=== PATIENT | female | born 1950 | race African-American/Black ===

== ENCOUNTER → 2018-01-28 | Outpatient (CLI) | payer MEDICARE, BC | END | disposition home or self-care (01) | LOC: LABPAT 10:53 | PROVIDERS: ATTEND Orthopaedic Surgery | DX: Z01.812 Encounter for preprocedural laboratory examination (principal) | CPT/HCPCS: 87070 ==

== ENCOUNTER → 2018-02-10 | Outpatient (CLI) | payer MEDICARE, BC ==
[2018-02-10 14:12] LABS: HCT 34.7 % (34.0-46.0); HGB 10.9 gm/dL (11.4-16.0); Hypochromasia Slight; MCH 24.9 pg (25.0-35.0); MCHC 31.3 g/dL (31.0-37.0); MCV 79.4 fL (80.0-100.0); Mean Platelet Volume 6.5; Platelet Count 364 k/uL (150-450); RBC 4.38 m/uL (3.80-5.40); RDW 15.2 % (11.5-15.5); WBC 7.2 k/uL (3.8-10.6)
[2018-02-10 14:14] LABS: Partial Thromboplastin Time 22.3 sec (22.0-30.0); Prothrombin Time 10.2 sec (9.0-12.0)
[2018-02-10 14:23] LABS: ALT 28 U/L (9-52); AST 30 U/L (14-36); Albumin 4.2 g/dL (3.5-5.0); Alkaline Phosphatase 81 U/L (38-126); Anion Gap 14 mmol/L; Blood Urea Nitrogen 15 mg/dL (7-17); Calcium 9.7 mg/dL (8.4-10.2); Carbon Dioxide 26 mmol/L (22-30); Chloride 102 mmol/L (98-107); Glucose 85 mg/dL (74-99); Sodium 142 mmol/L (137-145); Total Bilirubin 0.5 mg/dL (0.2-1.3)
[2018-02-10 14:55] LABS: Appearance,Urine Clear (Clear); Bilirubin,Urine Negative (Negative); Blood,Urine Negative (Negative); Color,Urine Light Yellow; Glucose,Urine (UA) Negative (Negative); Ketones,Urine Trace (Negative); Leukocyte Esterase,Urine Trace (Negative); Mucus,Urine Rare /hpf; Nitrite,Urine Negative (Negative); Protein,Urine Negative (Negative); RBC,Urine <1 /hpf (0-5); Specific Gravity,Urine 1.009 (1.001-1.035); Squamous Epithelial Cell,Urine 1 /hpf (0-4); Urobilinogen,Urine <2.0 mg/dL (<2.0); WBC,Urine 2 /hpf (0-5)
== END | disposition home or self-care (01) ==
LOC: LABPAT 13:07
PROVIDERS: ATTEND Orthopaedic Surgery
DX: Z01.812 Encounter for preprocedural laboratory examination (principal); Z01.818 Encounter for other preprocedural examination
CPT/HCPCS: 36415; 80053; 81001; 85027; 85610; 85730; 86850; 86900; 86901; 93005

== ENCOUNTER 2018-02-16 07:33 | Inpatient (IN) | payer MEDICARE, BC ==
[2018-02-03 13:27] VITALS: BMI 35.5
[~2018-02-16 07:33] MED LIST: ACETAMINOPHEN TAB 500 MG TAB PO ONE; HYDROmorphone 0.5 MG/0.5 ML SYRINGE IVP PRN; MELOXICAM 7.5 MG TAB PO ONE; MORPHINE SULFATE 4 MG/ML SYRINGE IV PRN; ONDANSETRON 4 MG/2 ML VIAL IVP PRN; ROPIVACAINE 246.25 MG, EPINEPHrine 0.5 MG, KETOROLAC 30 MG, cloNIDine HCL/PF 80 MCG, WA... MISCELLANE ONE; TRANEXAMIC ACID 1,000 MG in SODIUM CHLORIDE 0.9% 50 ML IVPB ONE; ceFAZolin IN SWFI 2 GM/20 ML SYRINGE IVP ONE
[2018-02-16] MEDS: LACTATED RINGERS 1,000 ML IV SCH ×2 (08:08→22:44)
[2018-02-16] MEDS ORDERED: LIDOCAINE 1% 20 ML VIAL (10MG/ML) FOR IV START INTRADERMA ONE (08:08)
[2018-02-16] MEDS ORDERED: ONDANSETRON 4 MG/2 ML VIAL ONE (08:10)
[2018-02-16] MEDS ORDERED: MAGNESIUM HYDROXIDE 2,400 MG/10 ML CUP PO PRN (08:59)
[2018-02-16] MEDS ORDERED: DIAZEPAM 5 MG TAB PO PRN ×2 (08:59)
[2018-02-16] MEDS ORDERED: HYDROmorphone 0.5 MG/0.5 ML SYRINGE IVP PRN ×3 (08:59)
[2018-02-16] MEDS ORDERED: hydrOXYzine PAMOATE 25 MG CAP PO PRN (08:59)
[2018-02-16] MEDS ORDERED: ONDANSETRON 4 MG/2 ML VIAL IVP PRN (08:59)
[2018-02-16] MEDS ORDERED: HYDROcodone/APAP 5-325MG 1 EACH TAB PO PRN (08:59)
[2018-02-16] MEDS ORDERED: NALOXONE 0.4 MG/ML 1 ML VIAL IV PRN (08:59)
[2018-02-16] MEDS ORDERED: PROPOFOL 10 MG/ML 20 ML VIAL IV ONE (09:38)
[2018-02-16] MEDS ORDERED: TRANEXAMIC ACID 1,000 MG/10 ML VIAL ONE (09:38)
[2018-02-16] MEDS ORDERED: LACTATED RINGERS 1,000 ML BAG IV ONE (09:38)
[2018-02-16] MEDS ORDERED: HEPARIN SODIUM,PORCINE 10,000 UNIT/ML 1 ML VIAL ONE (09:38)
[2018-02-16] MEDS ORDERED: LIDOCAINE 1% INJ 10MG/ML (20 ML MDV) ONE (09:38)
[2018-02-16] MEDS ORDERED: MIDAZOLAM 2 MG/2 ML VIAL ONE (09:38)
[2018-02-16] MEDS ORDERED: SODIUM CHLORIDE 0.9% 100 ML BAG ONE (09:38)
[2018-02-16] MEDS ORDERED: PHENYLEPHRINE-0.9% NACL SYG 1 MG/10 ML SYRINGE ONE (09:38)
[2018-02-16] MEDS ORDERED: fentaNYL (PF) 50 MCG/ML 2 ML AMP ONE (09:38)
[2018-02-16] MEDS ORDERED: ceFAZolin 3,000 MG in SODIUM CHLORIDE 0.9% IRRIGATIO 3,000 ML IRRIGATION ONE (10:14)
[2018-02-16] MEDS ORDERED: LACTATED RINGERS 1,000 ML IV ONE (10:33)
--- NOTE | 2018-02-16 11:09 | P.OP ---
Date of Procedure: 02/16/18 Preoperative Diagnosis: Severe osteoarthritis right hip Postoperative Diagnosis: Severe osteoarthritis right hip Procedure(s) Performed: Right total hip arthroplasty with a direct anterior approach Implants: Sultana and nephew Polarstem size 2 standard Sultana [employer] Nephew R3, 3 hole acetabular shell, 50 mm Sultana [employer] Nephew reflection 6.5 mm cancellus screw, 20 mm 2 Sultana [employer] Nephew R3, XLPE 20 acetabular liner Sultana [employer] Nephew Oxinium femoral head 32 m, +4 All components were press-fit. The articulation is Oxinium on polyethylene. Anesthesia: spinal Surgeon: Humberto Lobato Cold Rolling Coordinator #1: Yumiko Aldrich Estimated Blood Loss (ml): 300 (60 mL returned with Cell Saver) Pathology: other (Femoral head) Condition: stable Disposition: PACU Indications for Procedure: After failure of conservative treatment we discussed the surgical and nonsurgical treatment options at length. Patient wishes to proceed with a total hip arthroplasty with a direct anterior approach. Complications specific to this procedure were discussed at length, including but not limited to infection, leg length discrepancy, dislocation, and nerve injury. Patient is aware of all these complications and informed consent was obtained Operative Findings: The operative findings are consistent with severe osteoarthritis of the right hip Description of Procedure: Patient was seen and evaluated in the preoperative area, consent was reviewed, and the surgical site was marked with a skin marker. Patient was then brought to the operating room and given prophylactic antibiotics intravenously. 1 g of Tranexamic acid was also given. A spinal anesthetic was administered by the anesthesia department. The patient was then placed on the Marshall table with the bony prominences well-padded. The hip area was then prepped and draped in usual sterile fashion. A universal timeout was then performed, which confirmed the patient's name, surgical site, ALLERGIES, and procedure being performed. Next the incision site was located at 1 cm distal and 1 cm lateral to the anterior superior iliac spine. The skin and subcutaneous tissues were sharply incised. Incision was carefully dissected down to the fascia overlying the tensor fascia ward muscle. This fascia was then incised in line with the incision. Next, using blunt finger dissection, the tensor fascia ward muscle was dissected off its investing fascia. The muscle was then carefully retracted laterally with a cobra retractor over the lateral neck of the femur. Next, the circumflex vessels were identified and cauterized using the AquaMantis device. The anterior hip capsule was then exposed. The capsule was then opened and an inverted T fashion. Cobra retractors were then placed intracapsularly. The proximal femur was then visualized. The femoral neck was then osteotomized appropriate level above the lesser trochanter. Small amount of traction was placed with the Marshall table. A small wedge of bone was then removed from the remaining femoral head. Next, using a corkscrew femoral head was easily removed from the acetabulum. On gross visual inspection, the femoral head had complete loss of articular cartilage in multiple periarticular osteophytes. Attention was then turned to the acetabulum. the acetabulum was exposed and any remaining labrum was excised. Sequential reaming of the acetabulum was performed using fluoroscopic guidance. When the appropriate size was reached, a trial was then placed. The position and fit of the trial was checked with fluoroscopy. The trial was then removed. Then, using fluoroscopic guidance, the final implant was impacted at 20 of anteversion and 40 of abduction, and fully seated in the acetabulum. 2 screws were then placed in the acetabulum. Again fluoroscopy was used to check position of the screws. Next, the liner was then impacted, with a 20 elevated liner located in the anterior superior quadrant. Component locking was confirmed. Attention was then directed to the femur. With the aid of the Marshall table, the femur was externally rotated to approximately 130, extended, and abducted under the opposite leg. A side hook was then placed under the proximal femur, and the side hook elevator was used to elevate the proximal femur. Retractors were then placed. A capsular release was performed, as well as a release of the conjoined tendon, which afforded excellent visualization of the proximal femur. Next, a box osteotome was used to lateralize the proximal femur. A hand umbrella tipper was then used to locate the femoral canal. Sequential broaching was then performed with appropriate size which afforded excellent fixation in the proximal femur. A trial was then placed with appropriate head and neck, and the hip was gently reduced with the aid of the Marshall table. Fluoroscopy was then used to check position of the components, as well as to ensure equal leg lengths. The hip was then gently dislocated and the trials were then removed. Final implants were then impacted and the hip was again reduced. Final fluoroscopic x-rays confirmed that the components were in anatomic position, as well as equal leg lengths. The hip was also taken through range of motion, and found to be stable. The hip was then copiously irrigated with antibiotic solution with pulsatile lavage. The hip was then irrigated with Irrisept solution. The soft tissues were then injected with a ropivacaine solution, which consisted of 246.25 mg of ropivacaine, 0.5 mg of epinephrine, 30 mg of Toradol, 80 g of clonidine, and 48.45 mL of sterile water, for a total of 100 mL of fluid injected. A second dose of 1 g of Tranexamic acid was also given. the fascia was then closed with 2-0 strata fix suture. The subcutaneous tissue was closed with 3-0 Vicryl. The subcuticular tissue was closed with 3-0 strata fix suture. The skin was then closed with Dermabond glue and a sterile silver dressing. The patient was then transferred to the recovery room in stable condition. The phlebotomist medical lab assistant KAREN Brewer was required due to the complexity of surgery, and the need for skilled surgical elastic knitter hand frame for positioning, draping, exposure, retraction, and closure of the wound.
--- NOTE | 2018-02-16 11:47 | XR ---
Limited right hip HISTORY: Status post right hip arthroplasty Single frontal view of the right hip Patient is status post right hip arthroplasty. Postop change noted in the lumbosacral spine. The righ t hip shows normal alignment. Lucency present in the soft tissues. IMPRESSION: Orthopedic follow-up
--- NOTE | 2018-02-16 11:49 | XR ---
Limited right hip HISTORY: Anterior hip replacement 2 intraoperative views of the right hip document the procedure.
--- NOTE | 2018-02-16 11:50 | FL ---
Fluoroscopy HISTORY: Hip replacement 34 seconds fluoroscopy time supplied to the referring clinician. 2 intraoperative C-arm images docum ent the procedure. See dictated report from orthopedic surgery.
[2018-02-16] MEDS: SODIUM CHLORIDE 0.9% 1,000 ML IV SCH (12:00)
--- NOTE | 2018-02-16 13:27 | P.CONS ---
History of Present Illness - Reason for Consult Consult date: 02/16/18 Medical management - Chief Complaint Hip pain - History of Present Illness 67-year-old female who is here for right total hip arthroplasty. She has been having worsening pain in the right lower back and right hip for the last several months. She cannot sleep on the right side. After failing conservative treatment she underwent right total hip arthroplasty today. Currently she is doing well, has minimal right hip pain. No chest pain or shortness of breath. No fevers or chills. No recent illness. No nausea or vomiting, abdominal pain or diarrhea. Review of Systems 12 point review of system performed, negative except for HPI Past Medical History Past Medical History: Hypertension, Osteoarthritis (OA), Sleep Apnea/CPAP/BIPAP Additional Past Medical History / Comment(s): Hx sleep apnea, resolved 8 yrs ago. History of Any Multi-Drug Resistant Organisms: None Reported Past Surgical History: Back Surgery, Bariatric Surgery, Cholecystectomy, Hysterectomy, Joint Replacement Additional Past Surgical History / Comment(s): Left hip replacement, lumbar spinal fusion, left bunionectomy. Past Anesthesia/Blood Transfusion Reactions: No Reported Reaction Past Psychological History: No Psychological Hx Reported Smoking Status: Never smoker Past Alcohol Use History: Occasional Past Drug Use History: None Reported - Past Family History Father Family Medical History: Deep Vein Thrombosis (DVT) Daughter(s) Family Medical History: Cancer Additional Family Medical History / Comment(s): Breast cancer Medications and Allergies Home Medications Medication Instructions Recorded Confirmed Type Lisinopril [Zestril] 20 mg PO QAM 02/03/18 02/16/18 History Multivitamins, Thera [Multivitamin 2 tab PO DAILY 02/03/18 02/16/18 History (formulary)] Allergies Allergy/AdvReac Type Severity Reaction Status Date / Time No Known Allergies Allergy Verified 02/16/18 09:09 Physical Exam Vitals: Vital Signs Temp Pulse Resp BP Pulse Ox 02/16/18 11:50 83 14 101/52 100 02/16/18 11:35 77 14 103/57 100 02/16/18 11:26 96.5 F L 94 14 98/54 100 02/16/18 07:50 98.0 F 86 16 161/88 100 Intake and Output 02/15/18 02/16/18 02/16/18 22:59 06:59 14:59 Intake Total 1701 Output Total 300 Balance 1401 Intake: IV 1701 Output: Estimated Blood Loss 300 Other: Weight 93.894 kg Constitutional: No acute distress, conversant, pleasant Eyes:Anicteric sclerae, moist conjunctiva, no lid-lag, PERRLA, ENMT: Oropharynx clear, no erythema, exudates Neck: Supple, FROM, no masses, or JVD, No carotid bruits, No thyromegaly Lungs: Clear to auscultation, Clear to percussion, Normal respiratory effort, no accessory muscle use Cardiovascular: Heart regular in rate and rhythm, No murmurs, gallops, or rubs, No peripheral edema Abdominal: Soft, Nontender, no guarding, rebound or rigidity, Normoactive bowel sounds, No hepatomegaly, No splenomegaly, No palpable mass Skin: Normal temperature, tone, texture, turgor, no induration, No subcutaneous nodules, No rash, lesions, No ulcers Extremities: Right hip surgical dressings, no digital cyanosis, No clubbing, Pedal pulses intact and symmetrical, Radial pulses intact and symmetrical, No calf tenderness Psychiatric: Alert and oriented to person, place and time, appropriate affect, intact judgement Neuro: Muscles Strength 5/5 in all 4 extremities, Sensation to light touch grossly present throughout, Cranial nerves II-XII grossly intact, no focal sensory deficits Assessment and Plan Plan: #1 Severe right hip osteoarthritis status post hip replacement: Management per orthopedic surgery Pain control with as needed pain medications. Physical therapy #2 Essential hypertension Currently stable Continue lisinopril #3 DVT prophylaxis Per surgery, aspirin
[2018-02-16] MEDS: HYDROcodone/APAP 5-325MG 1 EACH TAB PO PRN ×2 (13:52→19:45)
[2018-02-16] MEDS: ceFAZolin IN SWFI 2 GM/20 ML SYRINGE IVP SCH (15:27)
[2018-02-16] MEDS: ASPIRIN 325 MG TAB PO SCH (19:44)
[2018-02-16] MEDS ORDERED: SODIUM CHLORIDE 0.9% 1,000 ML IV ONE (20:06)
[2018-02-16] MEDS ORDERED: SENNOSIDES-DOCUSATE SODIUM 1 EACH TAB PO SCH (21:00)
[2018-02-17] MEDS: ceFAZolin IN SWFI 2 GM/20 ML SYRINGE IVP SCH (00:56)
[2018-02-17] MEDS: SODIUM CHLORIDE 0.9% 1,000 ML IV SCH (00:57)
[2018-02-17] MEDS: HYDROcodone/APAP 5-325MG 1 EACH TAB PO PRN ×2 (02:31→09:00)
[2018-02-17 07:12] VITALS: BP 111/66; PULSE 88; RESP 16; TEMP 98.5
[2018-02-17 07:53] LABS: Basophils % (A) 0 %; Eosinophils % (A) 0 %; HCT 25.9 % (34.0-46.0); Hypochromasia Marked; Lymphocytes # (A) 1.6 k/uL (1.0-4.8); Lymphocytes % (A) 25 %; MCH 24.8 pg (25.0-35.0); MCHC 30.4 g/dL (31.0-37.0); MCV 81.6 fL (80.0-100.0); Mean Platelet Volume 6.7; Monocytes # (A) 0.4 k/uL (0-1.0); Monocytes % (A) 7 %; Neutrophils # (A) 4.1 k/uL (1.3-7.7); Neutrophils % (A) 66 %; Platelet Count 258 k/uL (150-450); RBC 3.17 m/uL (3.80-5.40); RDW 15.2 % (11.5-15.5); WBC 6.2 k/uL (3.8-10.6)
[2018-02-17 07:58] LABS: HGB 7.9 gm/dL (11.4-16.0)
[2018-02-17] MEDS ORDERED: LISINOPRIL 20 MG TAB PO SCH (09:00)
[2018-02-17] MEDS ORDERED: MELOXICAM 7.5 MG TAB PO SCH (09:00)
[2018-02-17] MEDS: ASPIRIN 325 MG TAB PO SCH (09:04)
[2018-02-17 09:32] LABS: HCT 27.5 % (34.0-46.0); HGB 8.5 gm/dL (11.4-16.0); Hypochromasia Marked; MCH 25.1 pg (25.0-35.0); MCHC 30.8 g/dL (31.0-37.0); MCV 81.4 fL (80.0-100.0); Mean Platelet Volume 6.5; Platelet Count 299 k/uL (150-450); RBC 3.38 m/uL (3.80-5.40)
--- NOTE | 2018-02-17 09:41 | P.DS ---
Providers Date of admission: 02/16/18 07:33 Expected date of discharge: 02/17/18 Attending physician: Humberto Lobato Consults: 02/16/18 08:59 Consult Physician Routine Consulting Provider: Saray Schmidt Consult Reason/Comments: medical management Do you want consulting provider notified?: Yes Primary care physician: Physician Nonstaff - Discharge Diagnosis(es) (1) Primary osteoarthritis of right hip Current Visit: Yes Status: Acute (2) S/P total hip arthroplasty Current Visit: Yes Status: Acute Hospital Course: This is a 67-year-old female with known history of degenerative arthritis of the right hip. The patient presents for evaluation. After discussion and consideration patient elects to proceed with total hip arthroplasty. The patient is seen preoperatively by Dr. Lobato and medically cleared for surgery by their primary care physician. Patient is admitted to [facility] on 02/16/2018 for total hip arthroplasty. The procedures performed without complication or sequelae. The patient is doing well postoperatively. Labs and vital signs are stable on day of discharge. On day of discharge patient's hip incision is healing well. There is minimal erythema. There is no drainage noted at this time. There is minimal soft tissue swelling to the hip and thigh. Patient has full foot and ankle motion without difficulty or pain. Neurovascular status to the right lower extremity is intact. Patient is discharged home in good condition. Please see med rec for accurate list of home medications. Plan - Discharge Summary Discharge Rx Participant: No New Discharge Prescriptions: New Aspirin 325 mg PO BID #60 tab HYDROcodone/APAP 5-325MG [[place] 5-325] 1 - 2 tab PO Q4-6H PRN #90 tab PRN Reason: Pain Sennosides [Senokot] 1 tab PO BID #60 tablet No Action Multivitamins, Thera [Multivitamin (formulary)] 2 tab PO DAILY Lisinopril [Zestril] 20 mg PO QAM Discharge Medication List Lisinopril [Zestril] 20 mg PO QAM 02/03/18 [History] Multivitamins, Thera [Multivitamin (formulary)] 2 tab PO DAILY 02/03/18 [History ] Aspirin 325 mg PO BID #60 tab 02/17/18 [Rx] HYDROcodone/APAP 5-325MG [[place] 5-325] 1 - 2 tab PO Q4-6H PRN #90 tab 02/17/18 [ Rx] Sennosides [Senokot] 1 tab PO BID #60 tablet 02/17/18 [Rx] Follow up Appointment(s)/Referral(s): Humberto Lobato DO [Doctor of Osteopathic Medicine] - 03/03/18 2:20 pm Activity/Diet/Wound Care/Special Instructions: Weightbearing as tolerated with walker Leave dressing intact. Dressing may be removed by home care nurse in 10 days. May shower with dressing on. Follow-up with [facility] in 2 weeks, please call with any questions or concerns [phone] Discharge Disposition: HOME WITH HOME HEALTH SERVICES
--- NOTE | 2018-02-17 10:40 | P.PN ---
Subjective Progress Note Date: 02/17/18 Principal diagnosis: hip pain Patient is a 67-year-old -[place] female with a past medical history of hypertension, obstructive sleep apnea-longer requiring CPAP, and osteoarthritis who presented for elective right total hip arthroplasty. She underwent right anterior hip replacement with Dr. Lobato. Patient seen and examined at bedside. She states she was lightheaded on standing yesterday after surgery but has since been okay. She denies any nausea , vomiting, diarrhea, or constipation. She has not had any chest pain or shortness of breath. She had sleep apnea however this resolved after her bariatric surgery and weight loss and she no longer requires a CPAP. Her plan is to go home with home health. Her family doctor is in [place]. She elected to have surgery here because her family is close by and they will help her during recovery. Objective - Vital Signs Vital signs: Vital Signs Temp 98.5 F 02/17/18 06:40 Pulse 88 02/17/18 06:40 Resp 16 02/17/18 06:40 BP 111/66 02/17/18 06:40 Pulse Ox 97 02/17/18 06:40 Intake & Output 02/16/18 02/17/18 02/17/18 18:59 06:59 18:59 Intake Total 1841 180 Output Total 300 Balance 1541 180 Weight 93.894 kg Intake: IV 1841 Sodium Chloride 0.9% 1, 140 000 ml @ 65 mls/hr IV . [id number] [facility] Rx#:[id number] Oral 180 Output: Estimated Blood Loss 300 Other: Voiding Method Toilet # Voids 2 1 - Exam General: non toxic, mild distress secondary to pain, Appears younger than stated age Derm: warm, dry Head: atraumatic, normocephalic, symmetric Eyes: EOMI, no lid lag, anicteric sclera Mouth: no lip lesion, mucus membranes moist Cardiovascular: S1S2 reg, no murmur, positive posterior tibial pulse bilateral, Lungs: decreased bs bilateral, no rhonchi, no rales , no accessory muscle use Abdominal: soft, nontender to palpation, no guarding, no appreciable organomegaly Ext: no gross muscle atrophy, no edema, no contractures Neuro: CN II-XI grossly intact, no focal neuro deficits Psych: Alert, oriented, appropriate affect - Labs CBC & Chem 7: 02/17/18 08:50 Labs: Abnormal Lab Results - Last 24 Hours (Table) 02/17/18 02/17/18 Range/Units 07:27 08:50 RBC 3.17 L 3.38 L (3.80-5.40) m/uL Hgb 7.9 L D 8.5 L (11.4-16.0) gm/dL Hct 25.9 L 27.5 L (34.0-46.0) % MCH 24.8 L (25.0-35.0) pg MCHC 30.4 L 30.8 L (31.0-37.0) g/dL Assessment and Plan Assessment: Osteoarthritis status post right anterior hip replacement -Pain management as per orthopedic surgery -DVT prophylaxis as per orthopedic surgery -Plan is home with home health care -PT/OT Acute blood loss anemia-anticipated with surgery -Repeat CBC to verify result, hemoglobin 8.5 and did not downtrend despite IV fluids over 2 hour. -Suggest ferrous sulfate twice a day 30 days -Repeat CBC next week with home health with results to myself -Attached to discharge summary instructions on when to seek medical care and information regarding anemia Hypertension, controlled -Resume home medication lisinopril Morbid obesity with BMI 35.5 -Status post gastric bypass -Continue outpatient weight loss Medically stable for discharge. Orders added to discharge tab and nurse notified. DVT prophylaxis: Aspirin Discussed with: Patient, nursing, Yumiko Aldrich PA-C Anticipated discharge: Today Anticipated discharge place: Home with home health A total of 45 minutes was spent on the care of this complex patient more than 50 % of the time was spent in counseling and care coordination.
[2018-02-17] MEDS ORDERED: FERROUS SULFATE 325 MG TAB PO SCH (17:30)
== END 2018-02-17 13:34 | disposition home health service (06) | DRG 470 ==
LOC: 2ORMAIN 07:33 → 3SUR 11:47
PROVIDERS: ADMIT Orthopaedic Surgery; ATTEND Orthopaedic Surgery
PROC: 30233N0 Transfusion of Autologous Red Blood Cells into Peripheral Vein, Percutaneous Approach (ICD-10-PCS; 2018-02-16)
PROC: 0SR906A Replacement of Right Hip Joint with Oxidized Zirconium on Polyethylene Synthetic Substitute, Uncemented, Open Approach (ICD-10-PCS; principal; 2018-02-16 09:15)
DX: M16.11 Unilateral primary osteoarthritis, right hip (principal); D62 Acute posthemorrhagic anemia; I10 Essential (primary) hypertension; G47.33 Obstructive sleep apnea (adult) (pediatric); E66.01 Morbid (severe) obesity due to excess calories; R42 Dizziness and giddiness; E78.5 Hyperlipidemia, unspecified; K59.00 Constipation, unspecified; R32 Unspecified urinary incontinence; N95.2 Postmenopausal atrophic vaginitis; M54.16 Radiculopathy, lumbar region; Z98.84 Bariatric surgery status; Z98.1 Arthrodesis status; Z96.642 Presence of left artificial hip joint; Z90.710 Acquired absence of both cervix and uterus; Z79.899 Other long term (current) drug therapy; Z68.35 Body mass index [BMI] 35.0-35.9, adult; Z87.891 Personal history of nicotine dependence; Z90.49 Acquired absence of other specified parts of digestive tract; Z80.3 Family history of malignant neoplasm of breast; Z82.49 Family history of ischemic heart disease and other diseases of the circulatory system; Z83.3 Family history of diabetes mellitus
CPT/HCPCS: 36415; 73501; 85025; 85027; 86850; 86891; 86900; 86901; 88300